=== PATIENT | male | born 1960 | race Caucasian/White ===

== ENCOUNTER 2022-01-21 16:07 | Emergency (ER) | payer OTHER ==
[~2022-01-21] VITALS: Ht 188 cm; Wt 133.4 kg
[~2022-01-21 16:07] MED LIST: AMLO-26; HYDROCODON-ACETAMINOPHN 10-325; TOPI25TA41
[2022-01-21 16:25] VITALS: BP 125/76
--- NOTE | 2022-01-21 16:30 | NUR ---
PT AMB TO BED 2.
--- NOTE | 2022-01-21 16:37 | NUR ---
[employer] Workman evaluating patient at bedside.
[2022-01-21] MEDS ORDERED: LIDOCAINE MPF 1% 10 MG/ML VIAL INJ ONE (16:45)
[2022-01-21] MEDS ORDERED: NACL 0.9% 1,000 ML IV ONE (16:45)
[2022-01-21] MEDS ORDERED: IBUPROFEN 600 MG TAB PO ONE (16:45)
[2022-01-21 16:53] LABS: BASOPHILS # (AUTO) 0.1 K/uL (0.00-0.22); EOSINOPHILS # (AUTO) 0.2 K/uL (0-0.4); EOSINOPHILS % (AUTO) 2.6 % (0.0-4.0); HEMOGLOBIN 13.4 g/dL (12.0-18.0); LYMPHOCYTES # (AUTO) 2.1 K/uL (2.0-11.5); LYMPHOCYTES % (AUTO) 23.7 % (20.5-51.1); MEAN CORPUSCULAR HEMOGLOBIN 31 pg (27-31); MEAN CORPUSCULAR HGB CONC 33 g/dL (33-37); MEAN CORPUSCULAR VOLUME 91.5 fL (80-94); MONOCYTES # (AUTO) 0.6 K/uL (0.8-1.0); NEUTROPHILS # (AUTO) 5.7 K/uL (1.8-7.7); NEUTROPHILS % (AUTO) 65.7 % (42.2-75.2); PLATELET COUNT (AUTO) 190 K/uL (140-450); RED BLOOD CELL COUNT(AUTO) 4.37 MIL/uL (4.20-6.10); RED CELL DISTRIBUTION WIDTH 15.3 % (11.6-13.7); WHITE BLOOD COUNT (AUTO) 8.6 K/uL (4.8-10.8)
--- NOTE | 2022-01-21 17:08 | NUR ---
61 y/o male bib self with c/o injury to right big toe nail x today. Patient is noted with dried blood and toe nail is lifted. Denies any pain at this time. Patient states he hit his toenail and only realized he had injured the nail when he saw blood on the floor. Patient is noted with long toenails. Patient states he is trying to get a new fast food cook to cut his nails. Medical History: DM and HTN NKDA
[2022-01-21 17:14] LABS: ALBUMIN 3.8 g/dL (3.4-5.0); ANION GAP 15.1 (8-16); CARBON DIOXIDE 25.7 mmol/L (21-32); CREATININE 1.8 mg/dL (0.6-1.3); POTASSIUM 4.8 mmol/L (3.5-5.1); TOTAL BILIRUBIN 0.4 mg/dL (0.0-1.0)
--- NOTE | 2022-01-21 19:12 | NUR ---
X-RAY AT BEDSIDE
--- NOTE | 2022-01-21 19:29 | NUR ---
Pt report given to ARNOLDO ALARCON. Transfer of care at this time.
--- NOTE | 2022-01-21 19:47 | NUR ---
Dr. Workman stitched patient's first toe right foot, patient tolerated proceedure, no c/o pain.
[2022-01-21] MEDS ORDERED: ACET-1194 PO (20:00)
[2022-01-21] MEDS ORDERED: BACI1PAC6 TP (20:00)
[2022-01-21] MEDS: INSULIN LISPRO 100 UNITS/ML VIAL SUBQ ONE ×2 (20:25→20:28)
[2022-01-21 20:49] VITALS: BP 131/75
--- NOTE | 2022-01-21 20:57 | NUR ---
Patient discharged with v/s stable. Written and verbal after care instructions given and explained. Patient verbalized understanding. Ambulatory with steady gait. All questions addressed prior to discharge. Advised to follow up with PMD.
--- NOTE | 2022-01-24 19:29 | NUR ---
LATE ENTRY. NS 0.9% BOLUS ENDED AT 2056 ON 01/21/22
== END 2022-01-21 20:40 | disposition home or self-care (01) ==
LOC: MED 16:07
DX: S92.411A Displaced fracture of proximal phalanx of right great toe, initial encounter for closed fracture (principal); E11.65 Type 2 diabetes mellitus with hyperglycemia; I10 Essential (primary) hypertension; Z79.4 Long term (current) use of insulin; Z79.899 Other long term (current) drug therapy; X58.XXXA Exposure to other specified factors, initial encounter; Y93.89 Activity, other specified; Y92.89 Other specified places as the place of occurrence of the external cause; Y99.8 Other external cause status
CPT/HCPCS: 11760; 36415; 73660; 80053; 85025; 96360; 96361; 96372; 99284; J1815; J2001; J7030; Q0092

== ENCOUNTER 2023-09-17 18:24 | Emergency (ER) | payer OTHER ==
[~2023-09-17] VITALS: Ht 185.4 cm; Wt 95.3 kg
[~2023-09-17 18:24] MED LIST changes: +ACET-1194 PO; +BACI-418 TP
[2023-09-17 18:30] VITALS: BP 119/73; PULSE 115; RESP 17; TEMP 98; O2SAT 100
[2023-09-17] MEDS ORDERED: ONDANSETRON 4 MG/2 ML VIAL ONE (20:04)
[2023-09-17] MEDS ORDERED: PANTOPRAZOLE 40 MG INJ VIAL ONE (20:04)
[2023-09-17] MEDS: NACL 0.9% 1,000 ML IV ONE ×2 (20:16→21:14)
[2023-09-17] MEDS: ONDANSETRON 4 MG/2 ML VIAL IVP ONE (20:17)
[2023-09-17] MEDS: PANTOPRAZOLE 40 MG INJ VIAL IVP ONE (20:17)
[2023-09-17 20:26] LABS: BASOPHILS # (AUTO) 0.1 K/uL (0.00-0.22); BASOPHILS % (AUTO) 0.3 % (0.0-2.0); EOSINOPHILS % (AUTO) 0.2 % (0.0-4.0); HEMOGLOBIN 13.9 g/dL (12.0-18.0); LYMPHOCYTES # (AUTO) 1.5 K/uL (2.0-11.5); LYMPHOCYTES % (AUTO) 9.7 % (20.5-51.1); MEAN CORPUSCULAR HEMOGLOBIN 32 pg (27-31); MEAN CORPUSCULAR HGB CONC 35 g/dL (33-37); MEAN CORPUSCULAR VOLUME 91.2 fL (80-94); MONOCYTES % (AUTO) 6.7 % (1.7-9.3); NEUTROPHILS # (AUTO) 12.5 K/uL (1.8-7.7); NEUTROPHILS % (AUTO) 83.1 % (42.2-75.2); PLATELET COUNT (AUTO) 246 K/uL (140-450); RED BLOOD CELL COUNT(AUTO) 4.38 MIL/uL (4.20-6.10); RED CELL DISTRIBUTION WIDTH 14.5 % (11.6-13.7)
[2023-09-17 20:38] LABS: ANION GAP 15.4 (8-16); CALCIUM 9.7 mg/dL (8.5-10.1); CARBON DIOXIDE 25.5 mmol/L (21-32); CREATININE 1.9 mg/dL (0.6-1.3); POTASSIUM 3.9 mmol/L (3.5-5.1)
[2023-09-17 20:47] LABS: ALANINE AMINOTRANSFERASE 27 U/L (12-78); ALBUMIN 3.9 g/dL (3.4-5.0); ALKALINE PHOSPHATASE 115 U/L (50-136); ASPARTATE AMINOTRANSFERASE 22 U/L (15-37); BILIRUBIN,DIRECT 0.2 mg/dL (0.0-0.3); CREATINE KINASE, TOTAL 114 U/L (39-308); LIPASE 37 U/L (16-77); TOTAL BILIRUBIN 0.7 mg/dL (0.0-1.0); TOTAL PROTEIN, SERUM 7.4 g/dL (6.4-8.2)
[2023-09-17 21:00] LABS: LACTIC ACID 2.1 mmol/L (0.4-2.0)
[2023-09-17] MEDS ORDERED: cefTRIAXone 1,000 MG VIAL ONE (21:09)
[2023-09-17 22:00] VITALS: BP 83/56; RESP 17; TEMP 98
[2023-09-17] MEDS ORDERED: METO5TAB4 PO (23:34)
[2023-09-17] MEDS ORDERED: SUCR1TAB7 PO (23:34)
[2023-09-17 23:49] VITALS: O2SAT 94
[2023-09-18] MEDS ORDERED: ALUMINUM HYD/MAG/SIMETHICONE 30 ML UDC ONE (00:58)
[2023-09-18] MEDS: ALUMINUM HYD/MAG/SIMETHICONE 30 ML UDC PO ONE (01:02)
[2023-09-18 01:09] LABS: BILIRUBIN,URINE 1+ (NEGATIVE); BLOOD, URINE NEGATIVE (NEGATIVE); LEUKOCYTE ESTERASE ,URINE NEGATIVE (NEGATIVE); NITRITE, URINE NEGATIVE (NEGATIVE); PH,URINE 8.5 (5.0-9.0); PROTEIN,URINE 2+ (NEGATIVE); UGLUCOSE NEGATIVE (NEGATIVE)
[2023-09-18 01:15] LABS: APPEARANCE,URINE CLEAR (CLEAR)
[2023-09-18 01:16] LABS: COLOR,URINE YELLOW (YELLOW); ICTOTEST POSITIVE (NEGATIVE)
[2023-09-18 02:42] VITALS: PULSE 88
== END 2023-09-18 02:40 | disposition home or self-care (01) ==
LOC: MED 18:24
DX: K20.90 Esophagitis, unspecified without bleeding (principal); N28.9 Disorder of kidney and ureter, unspecified; E86.0 Dehydration; D72.829 Elevated white blood cell count, unspecified; E87.20 Acidosis, unspecified; R11.2 Nausea with vomiting, unspecified; I13.10 Hypertensive heart and chronic kidney disease without heart failure, with stage 1 through stage 4 chronic kidney disease, or unspecified chronic kidney disease; E11.22 Type 2 diabetes mellitus with diabetic chronic kidney disease; Z86.73 Personal history of transient ischemic attack (TIA), and cerebral infarction without residual deficits; Z79.4 Long term (current) use of insulin; Z79.899 Other long term (current) drug therapy
CPT/HCPCS: 36415; 71045; 74176; 80048; 80076; 81003; 82550; 83605; 83690; 83880; 84484; 85025; 87040; 87086; 93005; 96365; 96375; 99285; C9113; J0696; J2405; J7030; 96361